=== PATIENT | female | born 1940 | race Caucasian/White ===

== ENCOUNTER 2024-05-24 23:50 | Emergency (ER) | payer MEDICARE ==
[2024-05-25 00:24] LABS: #Basophils 0.07 10x3/uL (0.0-0.2); %Basophils 0.7 % (0.0-1.0); %Eosinophils 3.1 % (0.0-10.0); %Lymphocytes 31.6 % (21.0-51.0); %Monocytes 10.1 % (0.0-10.0); %Neutrophils 54.2 % (42.0-75.0); Hematocrit 43.4 % (36.0-47.0); Hemoglobin 14.4 g/dL (12.0-16.0); Mean Corpuscular HGB CONC 33.2 g/dL (32.0-36.0); Mean Corpuscular Hemoglobin 31.6 pg (27.0-31.0); Mean Corpuscular Volume 95.2 fL (78.0-98.0); Mean Platelet Volume 10.5 fL (7.4-10.4); Platelet Count 268 10x3/uL (130-400); Red Blood Cell (RBC) Count 4.56 mill/uL (4.20-5.40)
[2024-05-25 00:45] LABS: ALT (SGPT) 16 U/L (8-55); AST (SGOT) 21 U/L (5-34); Albumin 3.4 g/dL (3.4-4.8); Alkaline Phosphatase 107 U/L (40-110); Anion Gap 13 mmol/L (10-20); BUN (Urea Nitrogen) 17 mg/dL (9.8-20.1); Bilirubin, Total 0.6 mg/dL (0.2-1.2); Calc. Creatinine Clearance 0 mL/min (70-130); Carbon Dioxide 23 mmol/L (23-31); Chloride 106 mmol/L (98-107); Estimated GFR 70; Globulin 3.5 g/dL (2.4-3.5); Glucose 117 mg/dL (83-110); Lipase 23 U/L (8-78); Potassium 3.8 mmol/L (3.5-5.1); Protein, Total 6.9 g/dL (5.8-8.1); Sodium 138 mmol/L (136-145)
[2024-05-25 00:49] LABS: Troponin I Less than 0.010 ng/mL (< 0.028)
[2024-05-25 03:30] LABS: Actual Bicarbonate (HCO3v) 25.4 mEq/L (22-28); Base Excess 0.2 mEq/L (-2.0 to +3.0); Calcium, Ionized (venous) 1.18 mmol/L (1.16-1.32); Chloride (VBG) 101 mmol/L (98-106); Hematocrit-VBG 48 % (36.0-47.0); Hemoglobin (Hb) 16.4 g/dL (11.7-16.1); Potassium (VBG) 4.17 mmol/L (3.70-5.30); Sodium 139 mmol/L (133-146); pH (venous) 7.386 (7.32-7.43)
[2024-05-25] MEDS ORDERED: Ipratropium/Albuterol 3 ML NEB ONE (03:33)
[2024-05-25] MEDS ORDERED: methylPREDNISolone Sod Succ 40 MG VIAL ONE (03:42)
[2024-05-25 04:12] LABS: Troponin I 0.024 ng/mL (< 0.028)
[2024-05-25] MEDS ORDERED: Escitalopram Oxalate 10 mg Tablet PO SCH (04:15)
[2024-05-25] MEDS ORDERED: Doxycycline 100 MG CAP ONE (06:16)
[2024-05-25] MEDS ORDERED: Iopamidol-370 76% 500 ML MDV (1 ML CHARGE) ONE (08:59)
== END 2024-05-25 06:26 | disposition home or self-care (01) ==
LOC: ERS 23:50
DX: J44.1 Chronic obstructive pulmonary disease with (acute) exacerbation (principal); E03.9 Hypothyroidism, unspecified; I10 Essential (primary) hypertension; Z79.890 Hormone replacement therapy
CPT/HCPCS: 71045; 71275; 80053; 82805; 83690; 83735; 83880; 84484 ×2; 85025; 93005; 94760; J2920; 36415; 96374; J7620